=== PATIENT | female | born 1955 | race Caucasian/White ===

== ENCOUNTER → 2020-12-25 | Outpatient (CLI) | payer MEDICARE ==
[~2020-12-25] MED LIST: ALPR0.5T7; CARV3.122; DICY10CA12; DIGO250T3; FLUT16SP22; IPRA4AER; LEVO50TA6; LEVO5TAB12; LISI-729; LISINOPRIL; OMEP20CA18; ROSU40TA23; RT-ALBUTEROL SULF 2.5 MG/3 ML PRE-MIX VIAL INH ONE
== END ==
LOC: RT 14:30
PROVIDERS: ATTEND Nurse Practitioner Family
DX: J44.9 Chronic obstructive pulmonary disease, unspecified (principal)
CPT/HCPCS: 94060; 94726; 94729